=== PATIENT | male | born 1960 | race Caucasian/White ===

== ENCOUNTER 2018-02-03 13:47 | Day surgery (SDC) | payer OTHER ==
[~2018-02-03] VITALS: Ht 177.8 cm; Wt 99.7 kg
[~2018-02-03 13:47] MED LIST: MARIJUANA OIL; META800 PO; OMEPRAZOLE MAGN20 MG PO; Pepcid40 MG PO; Xanax0.5 MG PO
[2018-02-03] MEDS ORDERED: NAPR500 (14:35)
[2018-02-03] MEDS ORDERED: Excedrin Extra1 EACH (14:35)
== END 2018-02-03 17:03 | disposition home or self-care (01) ==
LOC: ORSCSDS 13:47
PROVIDERS: Internal Medicine Gastroenterology
PROC: 0DB58ZX Excision of Esophagus, Via Natural or Artificial Opening Endoscopic, Diagnostic (ICD-10-PCS; principal; 2018-02-03 15:30)
PROC: 0DB98ZX Excision of Duodenum, Via Natural or Artificial Opening Endoscopic, Diagnostic (ICD-10-PCS; principal; 2018-02-03 15:30)
PROC: 0DB68ZX Excision of Stomach, Via Natural or Artificial Opening Endoscopic, Diagnostic (ICD-10-PCS; principal; 2018-02-03 15:30)
PROC: 0D758ZZ Dilation of Esophagus, Via Natural or Artificial Opening Endoscopic (ICD-10-PCS; principal; 2018-02-03 15:30)
DX: R13.10 Dysphagia, unspecified (principal); K21.0 Gastro-esophageal reflux disease with esophagitis; K29.00 Acute gastritis without bleeding; K29.80 Duodenitis without bleeding; R11.0 Nausea; M79.7 Fibromyalgia; F41.8 Other specified anxiety disorders; Z87.891 Personal history of nicotine dependence; Z79.899 Other long term (current) drug therapy
CPT/HCPCS: J7120

== ENCOUNTER 2020-08-03 10:14 | Day surgery (SDC) | payer OTHER ==
[~2020-08-03] VITALS: Ht 175.3 cm; Wt 99.3 kg
[~2020-08-03 10:14] MED LIST changes: +Excedrin Extra1 EACH; +HYDACE10B; +HYDCOR10; +HYDPAM50 PO; +NAPR500; +OSTERA TABLET1 EAC1; +PANT20
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
== END 2020-08-03 13:03 | disposition home or self-care (01) ==
LOC: ORSCSDS 10:14
PROVIDERS: Internal Medicine Gastroenterology
PROC: 0DBN8ZX Excision of Sigmoid Colon, Via Natural or Artificial Opening Endoscopic, Diagnostic (ICD-10-PCS; principal; 2020-08-03 12:00)
PROC: 0DBH8ZX Excision of Cecum, Via Natural or Artificial Opening Endoscopic, Diagnostic (ICD-10-PCS; principal; 2020-08-03 12:00)
DX: R10.30 Lower abdominal pain, unspecified (principal); D12.0 Benign neoplasm of cecum; K63.5 Polyp of colon; K57.30 Diverticulosis of large intestine without perforation or abscess without bleeding; K22.70 Barrett's esophagus without dysplasia; K64.8 Other hemorrhoids; F41.8 Other specified anxiety disorders; K21.9 Gastro-esophageal reflux disease without esophagitis; E66.9 Obesity, unspecified; Z68.33 Body mass index [BMI] 33.0-33.9, adult; Z87.891 Personal history of nicotine dependence; Z79.899 Other long term (current) drug therapy
CPT/HCPCS: 88305; J2250; J2704; J7120